=== PATIENT | male | born 1950 | race Caucasian/White ===

== ENCOUNTER 2021-07-30 09:32 | Day surgery (SDC) | payer MEDICARE ==
[~2021-07-30 09:32] MED LIST: Sodium Chloride 0.9% 10 ML Syringe FLUSH PRN
[2021-07-30] MEDS ORDERED: Midazolam 1 MG/ML 2 ML SDV IV ONE (09:33)
[2021-07-30] MEDS: Lactated Ringers 1,000 ML IV PRN (10:31)
[2021-07-30] MEDS: acetaZOLAMIDE 500 MG Cap.ER PO ONE (11:29)
== END 2021-07-30 11:42 | disposition home or self-care (01) ==
LOC: FB.SDS 09:32
PROVIDERS: ATTEND Ophthalmology
DX: H25.13 Age-related nuclear cataract, bilateral (principal); H25.041 Posterior subcapsular polar age-related cataract, right eye; D31.32 Benign neoplasm of left choroid; H52.03 Hypermetropia, bilateral; H61.23 Impacted cerumen, bilateral; F17.210 Nicotine dependence, cigarettes, uncomplicated; I10 Essential (primary) hypertension; I25.10 Atherosclerotic heart disease of native coronary artery without angina pectoris; D66 Hereditary factor VIII deficiency; E78.1 Pure hyperglyceridemia; Z95.5 Presence of coronary angioplasty implant and graft; Z79.899 Other long term (current) drug therapy
CPT/HCPCS: 00142; 66984; A9270; J2250; J7120; V2632

== ENCOUNTER 2021-08-13 06:32 | Day surgery (SDC) | payer MEDICARE ==
[~2021-08-13 06:32] MED LIST changes: +Lactated Ringers 1,000 ML IV PRN
[2021-08-13] MEDS ORDERED: fentaNYL 100 MCG/2 ML SDV IV ONE (06:33)
[2021-08-13] MEDS ORDERED: Sodium Chloride 0.9% 10 ML Syringe IV ONE (06:33)
[2021-08-13] MEDS ORDERED: Midazolam 1 MG/ML 2 ML SDV IV ONE (06:33)
[2021-08-13] MEDS ORDERED: acetaZOLAMIDE 500 MG Cap.ER PO ONE (08:53)
[2021-08-13] MEDS ORDERED: acetaZOLAMIDE 500 MG Cap.ER ONE (09:01)
== END 2021-08-13 09:15 | disposition home or self-care (01) ==
LOC: FB.SDS 06:32
PROVIDERS: ATTEND Ophthalmology
DX: H25.13 Age-related nuclear cataract, bilateral (principal); H25.041 Posterior subcapsular polar age-related cataract, right eye; D31.32 Benign neoplasm of left choroid; H52.03 Hypermetropia, bilateral; I25.10 Atherosclerotic heart disease of native coronary artery without angina pectoris; F17.210 Nicotine dependence, cigarettes, uncomplicated; E78.00 Pure hypercholesterolemia, unspecified; I10 Essential (primary) hypertension; Z95.5 Presence of coronary angioplasty implant and graft
CPT/HCPCS: 00142-QZ; A9270-GY; J2250; J3010; J3490; V2632

== ENCOUNTER 2024-10-19 16:05 | Emergency (ER) | payer MEDICARE | END 2024-10-19 17:27 | disposition home or self-care (01) | LOC: FB.ED 16:05 | DX: S05.01XA Injury of conjunctiva and corneal abrasion without foreign body, right eye, initial encounter (principal); H10.33 Unspecified acute conjunctivitis, bilateral; E78.00 Pure hypercholesterolemia, unspecified; I10 Essential (primary) hypertension; F17.200 Nicotine dependence, unspecified, uncomplicated; Z79.899 Other long term (current) drug therapy; X58.XXXA Exposure to other specified factors, initial encounter | CPT/HCPCS: 93005; 99283 ==